=== PATIENT | male | born 1990 | race African-American/Black ===

== ENCOUNTER 2019-09-30 00:09 | Emergency (ER) | payer SELFPAY ==
[~2019-09-30] VITALS: Ht 167.6 cm; Wt 108.9 kg
[2019-09-30 01:25] VITALS: BP 166/97
[2019-09-30] MEDS ORDERED: AZIT250T PO (02:32)
--- NOTE | 2019-09-30 02:32 | PHYS DOC ---
Past Medical History Past Medical History: No Pertinent History Past Surgical History: No Surgical History Alcohol Use: None Drug Use: None Adult General Chief Complaint Chief Complaint: FLU SYMPTOM HPI HPI Patient is a 29-year-old male who presents with complaint of productive cough, body aches and chills for the last week. Patient doesn't know whether or not he is been running a fever. He states that cough is been productive of yellow sputum. He denies any chest pain or shortness breath.[] Review of Systems Review of Systems Constitutional: Complains of chills [] HENT: Complains of congestion and sore throat [] Respiratory: Denies cough or shortness of breath [] Cardiovascular: No additional information not addressed in HPI [] GI: Denies abdominal pain, nausea, vomiting or diarrhea [] Integument: Denies rash or skin lesions [] Neurologic: Denies headache, focal weakness or sensory changes [] Physical Exam Physical Exam Constitutional: Well developed, well nourished, no acute distress, non-toxic appearance. [] HENT: Normocephalic, atraumatic, bilateral external ears normal, oropharynx moist, no oral exudates, nose normal. [] Cardiovascular:Heart rate regular rhythm, no murmur [] Lungs & Thorax: Bilateral breath sounds clear to auscultation [] Extremities: No tenderness, no cyanosis, no clubbing, ROM intact, no edema. [] Neurologic: Alert and oriented X 3, no focal deficits noted. [] Current Patient Data Vital Signs Vital Signs Date Time Temp Pulse Resp B/P (MAP) Pulse Ox O2 Delivery O2 Flow Rate FiO2 09/30/19 01:25 97.2 70 14 166/97 (120) 98 Room Air 97.2 EKG EKG [] Radiology/Procedures Radiology/Procedures [] Course & Med Decision Making Course & Med Decision Making Pertinent Labs and Imaging studies reviewed. (See chart for details) [] Dragon Disclaimer Dragon Disclaimer This electronic medical record was generated, in whole or in part, using a voice recognition dictation system. Departure Departure Impression: Primary Impression: Acute bronchitis Disposition: 01 HOME, SELF-CARE Condition: STABLE Referrals: NO PCP (PCP) Patient Instructions: Acute Bronchitis Scripts Azithromycin (ZITHROMAX) 250 Mg Tablet 1 PKG PO UD, #6 TAB Prov: ARELI BIRD Jr. DO 09/30/19 Problem Qualifiers Primary Impression: Acute bronchitis Bronchitis organism: unspecified organism Qualified Codes: J20.9 - Acute b ronchiok, unspecified ARELI BIRD Jr. DO Sep 30, 2019 02:32
[2019-09-30 02:35] LABS: INFLUENZA A PATIENT NEGATIVE (NEGATIVE); INFLUENZA B PATIENT NEGATIVE (NEGATIVE)
[2019-09-30] MEDS ORDERED: AZITHROMYCIN 250 MG TABLET. PO ONE (03:00)
== END 2019-09-30 02:45 | disposition home or self-care (01) ==
LOC: ER 00:09
DX: J20.9 Acute bronchitis, unspecified (principal)
CPT/HCPCS: 87804; 99284; Q0144